=== PATIENT | female | born 1940 | race Caucasian/White ===

== ENCOUNTER 2018-08-24 18:00 | Emergency (ER) | payer MEDICARE, MEDICAID ==
[~2018-08-24] VITALS: Ht 121.9 cm; Wt 66.7 kg
[2018-08-24] MEDS ORDERED: TRAM50TA2 PO (19:25)
[2018-08-24] MEDS ORDERED: PREG50CA PO (19:25)
[2018-08-24] MEDS ORDERED: ROPI6TAB2 PO (19:25)
[2018-08-24] MEDS ORDERED: LAMO25TA5 PO (19:25)
[2018-08-24] MEDS ORDERED: MENT118G TP (19:25)
[2018-08-24] MEDS ORDERED: PANT40TA3 PO (19:25)
[2018-08-24] MEDS ORDERED: FLUT15.87 NAS (19:25)
[2018-08-24] MEDS ORDERED: OXYB5TAB7 PO (19:25)
[2018-08-24] MEDS ORDERED: ASPI81TA45 PO (19:25)
[2018-08-24] MEDS ORDERED: ACET325T14 PO (19:25)
[2018-08-24] MEDS ORDERED: LEVO75TA5 PO (19:25)
[2018-08-24] MEDS ORDERED: DULO60CA7 PO (19:25)
[2018-08-24] MEDS ORDERED: ALBU0.63 NEB (19:25)
[2018-08-24] MEDS ORDERED: TUBE5VIA ID (19:25)
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
--- NOTE | 2018-08-24 20:28 | NUR ---
[facility] REPORT NUMBER [id number]
--- NOTE | 2018-08-24 21:27 | NUR ---
LIOR STILL IN ROOM AT THIS TIME
[2018-08-24 22:01] VITALS: BP 127/64
--- NOTE | 2018-08-24 22:02 | NUR ---
Patient/Caregiver given discharge instructions and they have confirmed that they understand the instructions. Patient ambulatory with steady gait. TAXI VOUCHER GIVEN ANT TAXIED TO FACILITY
--- NOTE | 2018-08-25 12:19 | NUR ---
Julienne Frausto SW with EPS called and left call back number of [phone]. Julienne wanted to speak to this RN. Returned phone call to Julienne. Recieved voicemail. Left message with call back phone number.
== END 2018-08-24 22:04 | disposition home or self-care (01) ==
LOC: ED 21:50
DX: T74.21XA Adult sexual abuse, confirmed, initial encounter (principal)
CPT/HCPCS: 99283; 99285